=== PATIENT | female | born 1980 | race Caucasian/White ===

== ENCOUNTER 2018-08-16 08:29 | Outpatient (CLI) | payer OTHER | END 2018-08-16 09:21 | disposition home or self-care (01) | LOC: RX STUDY 08:29 | DX: K21.9 Gastro-esophageal reflux disease without esophagitis (principal); R13.13 Dysphagia, pharyngeal phase ==

== ENCOUNTER 2019-01-11 05:46 | Day surgery (SDC) | payer OTHER ==
[~2019-01-11 05:46] MED LIST: CARAFATE1 GM PO; ZANTAC150 M3 PO; ZYRTEC10 M3 PO
[2019-01-11] MEDS ORDERED: DOXYCYCLINE HY100 M3 PO (08:45)
[2019-01-11] MEDS ORDERED: tylenol #3 PO (08:45)
== END 2019-01-11 18:40 | disposition home or self-care (01) ==
LOC: CIR.AMB 05:46
DX: N84.0 Polyp of corpus uteri (principal); D25.0 Submucous leiomyoma of uterus

== ENCOUNTER 2019-02-10 18:36 | Emergency (ER) | payer OTHER ==
[~2019-02-10] VITALS: Ht 167.6 cm; Wt 72.6 kg
[~2019-02-10 18:36] MED LIST changes: +DOXYCYCLINE HY100 M3 PO; +tylenol #3 PO
[2019-02-10] MEDS ORDERED: ZANTAC300 MG (18:41)
[2019-02-10] MEDS ORDERED: CARAFATE1 GM (18:41)
== END 2019-02-10 21:40 | disposition home or self-care (01) ==
LOC: ER 18:36
DX: N39.0 Urinary tract infection, site not specified (principal); N83.292 Other ovarian cyst, left side; N83.291 Other ovarian cyst, right side; R10.2 Pelvic and perineal pain; K38.1 Appendicular concretions